=== PATIENT | male | born 1950 | race Caucasian/White ===

== ENCOUNTER 2024-10-18 20:44 | Emergency (ER) | payer MEDICARE, SELFPAY ==
[2024-10-18 20:46] VITALS: BP 139/93; PULSE 92; RESP 18; TEMP 36.2; O2SAT 99; BMI 19.3
[2024-10-18 21:11] VITALS: BP 114/79; BP 125/81; BP 129/89; PULSE 107; PULSE 82; PULSE 86
--- NOTE | 2024-10-18 21:26 | EKG12_ITS ---
Test Reason : DYSRHYTHMIA Blood Pressure : */* mmHG Vent. Rate : 83 BPM Atrial Rate : 83 BPM P-R Int : 170 ms QRS Dur : 74 ms QT Int : 350 ms P-R-T Axes : 83 72 86 degrees QTcB Int : 411 ms Normal sinus rhythm Right atrial enlargement Anterolateral infarct (cited on or before 25-Jul-2014) Abnormal ECG Confirmed by AMANDA ROLAND, PAGE ([id number]), editorial writer BRANDEE RASCON ([id number]) on 10/21/2024 8:03:32 AM Referred By: MARIA Confirmed By: PAGE PATEL MD
--- NOTE | 2024-10-18 21:33 | EX.ED.DYSGE1 ---
HPI History of Present Illness Chief Complaint: Syncope Informant: patient and spouse/S.O. Narrative Narrative: 74-year-old male presenting to the emergency room with a chief complaint of syncope. Patient has a history of liver transplant in 2012. This was complicated by a myocardial infarction in which she received 2 stents to his LAD. He states he follows with cardiology through [facility]. States he has been doing well from a cardiac standpoint. Monday night into Monday morning he began to feel ill with cough fever headache. He was diagnosed with influenza. He felt like he was getting better and this morning he decided he would take a Tamiflu. He took this at around 0900 hrs. At 1000 hours the patient states he began to feel quite poorly. He states he got up to use the bathroom and had a syncopal episode. During which time he injured his left hand causing a skin tear. This was dressed by his . He states throughout the day he felt quite rundown. He is having intermittent episodes where his heart rate would be slow and at times would be up to 140. There was a another syncopal episode this evening and they decided to come to emergency. He does not feel his heart racing when it occurs. [facility] Medical History Hx of myocardial infarction CKD (chronic kidney disease), stage II Home Medications ?Medication ?Instructions ?Recorded ?Last Taken ?Type cyclosporine modified 25 mg capsule 25 mg PO Q12H 10/18/24 Unknown History dapagliflozin propanediol 5 mg 5 mg PO DAILY 10/18/24 Unknown History tablet (Farxiga) eplerenone 25 mg tablet 12.5 mg PO DAILY 10/18/24 Unknown History metoprolol succinate 50 mg 25 mg PO DAILY 10/18/24 Unknown History tablet,extended release 24 hr pravastatin 10 mg tablet 10 mg PO QHS 10/18/24 Unknown History tramadol 50 mg tablet 50 mg PO Q8H 10/18/24 Unknown History Allergy/AdvReac Type Severity Reaction Status Date / Time lisinopril Allergy Mild other Verified 10/18/24 20:46 Surgical History Hx of liver transplant Social History Smoking Status: Never smoker ROS ROS ED Constitutional Constitutional ED: Reports fever(s); Denies chills or weight loss Eyes Eyes: Denies change in vision or diplopia ENT ENT ED: Denies ear pain, rhinorrhea or sore throat Cardiovascular Cardiovascular: Reports racing heartbeat and other Details: Syncope ; Denies chest pain, orthopnea or palpitations Respiratory/Chest Respiratory/Chest: Reports cough; Denies dyspnea or orthopnea Gastrointestinal Gastrointestinal: Denies abdominal pain, diarrhea, nausea or vomiting Genitourinary Genitourinary ED: Denies dysuria, hematuria or urinary frequency Musculoskeletal Musculoskeletal: Denies arthralgias or myalgias Integumentary Reports other Details: Left dorsum of hand skin tear ; Denies abscess or rash Neurologic Neurologic: Reports weakness; Denies headache(s) Psychiatric Psychiatric: Denies anxiety, depression, suicidal ideation or suicidal thoughts Endocrine Endocrinology: Denies polydipsia, polyphagia or polyuria Allergic/Immunologic Allergic/Immunologic ED: Denies mouth swelling, tongue swelling or urticaria EXAM Physical Exam Const Vital Signs: 10/18/24 20:46 10/18/24 21:02 10/18/24 21:11 Temperature 97.2 F L Temperature Source Temporal Pulse Rate 92 Pulse Rate [Lying] 82 Pulse Rate [Sitting (for 1 minute prior to obtaining)] 86 Pulse Rate [Standing (for 1 minute prior to obtaining)] 107 H Respiratory Rate 18 Respiratory Effort Normal Non-Labored Respiratory Pattern Normal Blood Pressure 139/93 H Blood Pressure [Lying] 129/89 H Blood Pressure [Sitting (for 1 minute prior to obtaining)] 125/81 H Blood Pressure [Standing (for 1 minute prior to obtaining)] 114/79 Blood Pressure Mean 108 Blood Pressure Mean [Lying] 102 Blood Pressure Mean [Sitting (for 1 minute prior to obtaining)] 95 Blood Pressure Mean [Standing (for 1 minute prior to obtaining)] 90 Pulse Ox 99 Oxygen Delivery Method Room Air 10/18/24 22:45 10/18/24 23:13 Temperature 98.2 F Temperature Source Pulse Rate 82 80 Pulse Rate [Lying] Pulse Rate [Sitting (for 1 minute prior to obtaining)] Pulse Rate [Standing (for 1 minute prior to obtaining)] Respiratory Rate 18 16 Respiratory Effort Respiratory Pattern Blood Pressure 120/78 123/77 H Blood Pressure [Lying] Blood Pressure [Sitting (for 1 minute prior to obtaining)] Blood Pressure [Standing (for 1 minute prior to obtaining)] Blood Pressure Mean 92 92 Blood Pressure Mean [Lying] Blood Pressure Mean [Sitting (for 1 minute prior to obtaining)] Blood Pressure Mean [Standing (for 1 minute prior to obtaining)] Pulse Ox 98 98 Oxygen Delivery Method Room Air Positive well nourished and well developed General Appearance ED: well developed and NAD HEENT Reports normocephalic, head/scalp atraumatic and moist mucous membranes Eyes PERRL and EOMs intact bilaterally Neck no lymphadenopathy, supple and no JVD Resp normal respiratory effort and clear to auscultation bilaterally Cardio regular rate, regular rhythm and no murmurs GI normal to inspection, nondistended, normoactive bowel sounds and non-tender Palpation: soft Back/Spine no CVA tenderness and normal ROM Extremity normal to inspection General Extremety ED: Negative for edema General Extremity: Negative for edema Neuro oriented x3 and CN's II-XII intact bilaterally Sensorium / Orientation: alert Motor Exam: strength 5/5 throughout Psych mental status grossly normal Mood & Affect: Negative for depressed or tearful Skin no rashes or lesions noted and no wounds MDM MDM MDM Narrative Medical decision making narrative: Differential diagnosis includes but not limited to cardiac dysrhythmia electrolyte abnormalities anemia pneumonia acute coronary syndrome vasovagal syncope/near syncope Patient's white count 5.3 hemoglobin 13.2 platelet count of 159. Troponin is 28 magnesium is 2 TSH is 5 glucose 148 BUN of 39 with creatinine 1.63. Sodium 129 potassium 4.2. My independent interpretation of the chest x-ray is no acute process. EKG is a normal sinus rhythm with a rate of 83 bpm. Right when the patient was first placed on the monitor he was having some ectopy this appeared to be a narrow complex rhythm that was irregular in nature and not sustained. Since that time however he has been in normal sinus rhythm with rates in the 70s. He is not orthostatic. I spoke with the patient and his . We talked about an observational stay for the syncope to see if we can capture a cardiac dysrhythmia. He would prefer to go home. Using shared decision making we agree that the patient can go home she had return of symptoms he needs to return he needs to follow-up with his decision support manager. History & Record Review Discussion w/independent historian: Patient and Significant other Lab Data Attestation: I reviewed the patient's lab results. Labs: Laboratory Results - last 24 hr 10/18/24 21:40 WBC 5.3 RBC 4.65 Hgb 13.2 Hct 40.6 MCV 87.3 MCH 28.4 MCHC 32.5 RDW Std Deviation 40.9 RDW Coeff of Grazyna 12.9 Plt Count 159 MPV 10.6 Immature Gran % (Auto) 0.600 Neut % (Auto) 66.0 Lymph % (Auto) 11.3 L [place] % (Auto) 21.1 H Eos % (Auto) 0.4 Baso % (Auto) 0.6 Absolute Neuts (auto) 3.5 Absolute Lymphs (auto) 0.60 L Nucleated RBC % 0 PT 13.0 INR 1.0 APTT 32.8 Sodium 129 L Potassium 4.2 Chloride 93 L Carbon Dioxide 27.0 Anion Gap 9 BUN 39 H Creatinine 1.63 H Estim Creat Clear Calc 32.90 Est GFR (MDRD) Af Amer 53 L Est GFR (MDRD) Non-Af 44 L BUN/Creatinine Ratio 23.9 H Glucose 148 H Calcium 8.6 Magnesium 2.0 Troponin I High Sens 28 TSH 5.000 H Radiography Diagnostic Testing: Clinical Impression(s) from Imaging Studies Chest X-Ray 10/18/24 21:40 IMPRESSION: Emphysematous changes with coarse interstitial opacities. There is no focal consolidation. Electronically Signed: Az Caldwell MD at 22:14 EST Reading Location ID and State: [facility] / [place] Tel , Service support , EKG Initial EKG: Attestation: I personally reviewed and interpreted this EKG as follows: Comments: Normal sinus rhythm ventricular rate of 83 bpm. Right atrial enlargement noted. 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 If you have return of symptoms or have concerns please return directly to emergency Print Language: [place] Disposition Disposition: Home, Self Care
--- NOTE | 2024-10-18 21:40 | RAD_ITS ---
EXAM: XR CHEST, 1 VIEW CLINICAL INDICATION: cough TECHNIQUE: Frontal view of the chest. COMPARISON: 05/28/2013 FINDINGS: LUNGS AND PLEURAL SPACES: There are coarse interstitial opacities and emphysematous bulla present. There is no focal consolidation. No pneumothorax. No effusion. HEART: Unremarkable. Cardiac silhouette not enlarged. MEDIASTINUM: Central airways and mediastinal contour are unremarkable. BONES/JOINTS: Unremarkable. No acute fracture. SOFT TISSUES: Unremarkable. RAD/Chest 1 View (Portable) IMPRESSION: Emphysematous changes with coarse interstitial opacities. There is no focal consolidation. Electronically Signed: Az Caldwell MD at 22:14 EST ,
[2024-10-18 21:51] LABS: Absolute Neutrophil Count 3.5 X10^3/uL (2.0-7.7); Basophil# 0.03 X10^3/uL; Basophil% 0.6 % (0-1); Eosinophil# 0.02 X10^3/uL; Eosinophils% 0.4 % (0-5); Hematocrit 40.6 % (40-54); Hemoglobin 13.2 g/dL (13.0-16.5); Lymphocyte % 11.3 % (19-41); Mean Corp Hgb Conc 32.5 g/dL (32-36); Mean Corpuscular Hgb 28.4 pg (27.0-32.0); Mean Corpuscular Volume 87.3 fL (80-94); Mean Platelet Vol. 10.6 fl (6.2-12.0); Monocyte# 1.12 X10^3/uL; Monocyte% 21.1 % (0-10); NRBC Flagged by Analyzer 0 % (0-5); POSITIVE DIFFERENTIAL YES; Platelet Count 159 K/mm3 (150-450); RBC Distribution Width CV 12.9 % (11.6-14.6); RBC Distribution Width SD 40.9 fl (35.1-43.9); Red Blood Count 4.65 M/mm3 (4.6-6.2); White Blood Count 5.3 K/mm3 (4.4-11.0)
[2024-10-18 22:02] LABS: Partial Thromboplast Time 32.8 Seconds (24.1-36.2)
[2024-10-18 22:17] LABS: Anion Gap 9 (5-15); BUN 39 mg/dL (7-18); BUN/Creat Ratio 23.9 RATIO (10-20); Calcium,Total 8.6 mg/dL (8.5-10.1); Chloride 93 mmol/L (98-107); Creatinine, Serum 1.63 mg/dL (0.70-1.30); EST Glomerular Filtration Rate 44 mL/min (>60); Est Glom Filt Rate - Afr Amer 53 mL/min (>60); Glucose 148 mg/dL (74-106); Potassium 4.2 mmol/L (3.5-5.1); Sodium Level 129 mmol/L (136-145); Troponin-I HS 28 pg/mL (3.0-78.0)
[2024-10-18 22:45] VITALS: BP 120/78; PULSE 82; RESP 18; O2SAT 98
[2024-10-18 23:13] VITALS: BP 123/77; PULSE 80; RESP 16; TEMP 36.8; O2SAT 98
== END 2024-10-18 23:19 | disposition home or self-care (01) ==
PROVIDERS: Emergency Provider Emergency Medicine; PCP Nurse Practitioner Family; Visit Provider Emergency Medicine
DX: R55 Syncope and collapse (principal); Z94.4 Liver transplant status; N18.2 Chronic kidney disease, stage 2 (mild); Z95.5 Presence of coronary angioplasty implant and graft; I25.10 Atherosclerotic heart disease of native coronary artery without angina pectoris; J11.1 Influenza due to unidentified influenza virus with other respiratory manifestations; I25.2 Old myocardial infarction; Z79.899 Other long term (current) drug therapy
CPT/HCPCS: 71045; 80048; 83735; 84443; 84484; 85025; 85610; 85730; 93005; 99285; A4216